=== PATIENT | female | born 1975 | race Caucasian/White ===

== ENCOUNTER 2017-08-17 19:21 | Emergency (ER) | END 2017-08-17 20:58 | disposition home or self-care (01) ==

== ENCOUNTER 2018-07-14 08:48 | Day surgery (SDC) | payer OTHER ==
[~2018-07-14] VITALS: Ht 162.6 cm; Wt 73.5 kg
[~2018-07-14 08:48] MED LIST: AMOX500T PO; CARB15DR50 RIGHT EAR; FAMO-96 PO
[2018-07-14 09:39] VITALS: Ht 162.6 cm; Wt 73.5 kg
[2018-07-14] MEDS ORDERED: GABAPENTIN (09:51)
[2018-07-14] MEDS ORDERED: LISINOPRIL (09:51)
[2018-07-14 10:25] VITALS: BP 141/78; PULSE 73; RESP 14
[2018-07-14] MEDS ORDERED: FENTAnyl 50 MCG/ML VIAL ONE (11:28)
[2018-07-14] MEDS ORDERED: MIDAZOLAM 1 MG/ML 2 ML INJ ONE ×2 (11:28)
[2018-07-14 11:34] VITALS: BP 131/75; PULSE 63; RESP 14
== END 2018-07-14 11:35 | disposition home or self-care (01) ==
LOC: GIL 08:48
PROVIDERS: ATTEND Internal Medicine Gastroenterology
DX: R19.4 Change in bowel habit (principal); K64.8 Other hemorrhoids; D12.5 Benign neoplasm of sigmoid colon; K63.89 Other specified diseases of intestine; D12.0 Benign neoplasm of cecum; I10 Essential (primary) hypertension
CPT/HCPCS: 45385; 84703; J2250; J3010; Z7610; 88305